=== PATIENT | female | born 1975 | race Caucasian/White ===

== ENCOUNTER 2017-10-02 08:25 | Day surgery (SDC) | payer OTHER ==
[2017-10-01 11:40] VITALS: BMI 24.5
--- NOTE | 2017-10-02 09:31 | HP ---
History & Physical Update - History History: No Change (unchanged from 09/13/17 consent signed) - Physical Physical: No Change - Assessment Assessment: No Change - Plan Plan: No Change
[2017-10-02] MEDS ORDERED: SCOPOLAMINE HYDROBROMIDE 1 PATCH PATCH.TD72 ONE (11:15)
[2017-10-02] MEDS ORDERED: PROPOFOL 20 ML ONE ×6 (11:32→12:29)
[2017-10-02] MEDS ORDERED: MIDAZOLAM HCL 2 MG/2 ML SINGLE DOSE VIAL ONE ×2 (11:33→11:35)
[2017-10-02] MEDS ORDERED: IBUPROFEN 600 MG TABLET (FP) PO PRN (11:38)
[2017-10-02] MEDS ORDERED: ONDANSETRON 4 MG/2 ML VIAL IVPUSH PRN (11:38)
[2017-10-02] MEDS ORDERED: IBUPROFEN 800 MG/8 ML IJ IVPB PRN (11:38)
[2017-10-02] MEDS ORDERED: oxyCODONE HCL 5 MG TABLET PO PRN ×3 (11:38→13:04)
--- NOTE | 2017-10-02 11:38 | OP ---
Operative Note - Note: Operative Date: 10/02/17 Pre-Operative Diagnosis: 41yo with multifibroid uterus, submucasal fibroid, abnormal uterine bleeding Operation: Hysteroscopy/Myomectomy/Endometrial ablation Findings: 1. R lateral wall 3cm fibroid 2. Overgrown endometrium 3. Completed HTA cycle Post-Operative Diagnosis: Same as Pre-op Surgeon: Jazmyn Dong Anesthesiologist/EDGE GLUE MACHINE TENDER: Hernandez Morel Anesthesia: MAC Specimens Removed: Fibroid shavings and endometrium curettings Estimated Blood Loss (mls): 0 Drains & Tubes with Location: 150cc fluid deficit Drains, Volume Out (mls): 100 Fluid Volume Replaced (mls): 700 Operative Report Dictated: Yes
[2017-10-02] MEDS ORDERED: ELECTROLYTE-148 SOLN 1,000 ML IV SCH (11:45)
[2017-10-02] MEDS ORDERED: PROMETHAZINE HCL 25 MG/1 ML VIAL IVPUSH PRN (13:03)
[2017-10-02] MEDS ORDERED: LACTATED RINGERS SOLUTION 1,000 ML IV SCH (13:15)
[2017-10-02] MEDS ORDERED: ACETAMINOPHEN 1000 MG/100 ML VIAL (NON FORMULARY) IVPB ONE (13:24)
[2017-10-02 18:21] VITALS: BP 104/62; PULSE 75; TEMP 98.1
--- NOTE | 2017-10-03 00:51 | OP ---
DATE OF OPERATION: DATE OF DICTATION: 10/02/2017 PREOPERATIVE DIAGNOSIS: A 41-year-old para 3 with multifibroid uterus, submucosal fibroid, abnormal uterine bleeding. SURGERY: Hysteroscopy, myomectomy, endometrial ablation. SURGEON: Kiera Zhang M.D. DESCRIPTION OF PROCEDURE: After assuring informed consent, patient was brought to the operating room where she was placed in direct lithotomy position. Perineum and vagina were prepped and draped in sterile fashion. Harris hysteroscope was assembled, white balanced, and primed. Patient cervix was visualized by placing Levine speculum into the vagina and articulating cervix with single-toothed tenaculum. Cervix was dilated with gradually increasing in size dilators to accommodate 6 mm hysteroscope. Hysteroscope was introduced into the cervix without any difficulty and into the uterus. Right side submucosal approximately 3 cm fibroid was identified. The Symphion instrument was introduced through the scope and fibroid was resected from the left lateral uterine wall without any difficulty. Endometrial lining was found to be overgrown and was removed with Symphion hysteroscopic device. Subsequently the scope was assembled and introduced without any trauma difficulty into the uterus. Excellent seal was obtained of hysteroscope with the uterine cervix and full 10-minute cycle was performed with good visualization of endometrium changing color to achieve proper ablation cycle. Subsequently 2-minute cooling cycle was performed and subsequently all instruments and sponges were removed from the cervix and the vagina. Specimens were fibroid shavings and endometrial curettings together sent to pathology. Estimated blood loss was 0 mL. Fluid deficit was 150 mL. Patient received 700 mL of IV fluids and put out 100 mL of urine. All sponge and instrument counts were correct x2. Patient brought to the recovery room, extubated in excellent condition. KIERA ZHANG M.D. [id number]
--- NOTE | 2017-10-04 15:42 | PATH ---
Surgical Pathology Report Patient Name: VASQUEZ MASON Med. Rec. #: [id number] /Age/Gender: 1975 (Age: 41) / F Account: [id number] Location: [facility] SURGICAL Taken: 10/02/2017 Received: 10/03/2017 Reported: 10/04/2017 Physicians: Jazmyn Dong M.D. Specimen(s) Received FIBROID, ENDOMETRIAL CURETTINGS Clinical History Fibroid uterus, abnormal uterine bleeding Final Diagnosis UTERUS, FIBROIDS, ENDOMETRIAL CURETTINGS, HYSTEROSCOPY, MYOMECTOMY, DILATION AND CURETTAGE, HYDROTHERMAL ENDOMETRIAL ABLATION: SECRETORY ENDOMETRIUM, FRAGMENTS OF SMOOTH MUSCLE CONSISTENT WITH LEIOMYOMA, AND BENIGN ENDOCERVICAL TISSUE. Electronically Signed Emilia Choi M.D. Gross Description Received in formalin labeled "fibroids, endometrial curettings," is a 6 g, 5.3 x 4.0 x 0.4 cm aggregate of [place], firm to rubbery tissue fragments, consistent with fibroids. The specimen is entirely submitted in 5 cassettes. /[facility]
== END 2017-10-02 18:15 | disposition home or self-care (01) ==
LOC: JASU-SURG 08:25
PROVIDERS: ATTEND Obstetrics & Gynecology
PROC: 0U5B8ZZ Destruction of Endometrium, Via Natural or Artificial Opening Endoscopic (ICD-10-PCS; principal; 2017-10-02 10:00)
PROC: 0UB98ZZ Excision of Uterus, Via Natural or Artificial Opening Endoscopic (ICD-10-PCS; 2017-10-02 10:00)
DX: D25.0 Submucous leiomyoma of uterus (principal); N93.9 Abnormal uterine and vaginal bleeding, unspecified
CPT/HCPCS: 84703; 88305-TC; 94760; J0131

== ENCOUNTER 2021-06-01 10:25 | Emergency (ER) | payer OTHER ==
[2021-06-01 10:32] VITALS: BP 104/72; PULSE 92; TEMP 97.6; BMI 24.1
[2021-06-01] MEDS ORDERED: predniSONE 20 MG TABLET (UD) PO ONE (11:20)
[2021-06-01] MEDS ORDERED: KETOROLAC TROMETHAMINE 30 MG/1 ML VIAL IM ONE (11:20)
[2021-06-01] MEDS ORDERED: predniSONE 20 MG TABLET (UD) ONE (11:24)
[2021-06-01] MEDS ORDERED: predniSONE 10 MG TABLET (UD) ONE (11:24)
[2021-06-01] MEDS ORDERED: KETOROLAC TROMETHAMINE 30 MG/1 ML VIAL ONE (11:24)
== END 2021-06-01 12:32 | disposition home or self-care (01) ==
LOC: JERFT 10:25
PROC: 3E023GC Introduction of Other Therapeutic Substance into Muscle, Percutaneous Approach (ICD-10-PCS; principal; 2021-06-01)
DX: T78.40XA Allergy, unspecified, initial encounter (principal)
CPT/HCPCS: 99284-25

== ENCOUNTER 2021-07-05 08:36 | Emergency (ER) | payer OTHER ==
[2021-07-05 09:04] VITALS: BP 101/62; PULSE 72; TEMP 97.7; BMI 23.8
[2021-07-05] MEDS ORDERED: KETOROLAC TROMETHAMINE 30 MG/1 ML VIAL IM ONE (09:43)
[2021-07-05] MEDS ORDERED: KETOROLAC TROMETHAMINE 30 MG/1 ML VIAL ONE (10:56)
== END 2021-07-05 12:05 | disposition home or self-care (01) ==
LOC: JER 08:36 → JERFT 08:36
PROC: 3E0233Z Introduction of Anti-inflammatory into Muscle, Percutaneous Approach (ICD-10-PCS; principal; 2021-07-05)
DX: M79.631 Pain in right forearm (principal); X50.0XXA Overexertion from strenuous movement or load, initial encounter
CPT/HCPCS: 73070-TC-RT-FY; 73090-TC-RT-FY; 99284-25